=== PATIENT | male | born 1940 | race Caucasian/White ===

== ENCOUNTER 2020-10-04 17:55 | Outpatient (REF) | payer OTHER, SELFPAY ==
--- NOTE | 2020-10-04 10:15 | SKI_PTH ---
PATIENT: Fantasma Reid LOC: [facility] U#:[id number] AGE/SX: 80/M ROOM: RE10/04/[address]: Seth Cabral DO : 1940 BED: DIS: 10/04/2020 SPEC #: [id number] RECD: 10/04/20 18:06 STATUS: AGUEDA REQ #: [id number] USHA: 10/04/20 10:[address]: Seth Cabral DEPT: Surgical Specimen RECD BY: Jody Lockett ENTERED: 10/04/20 18:07 SP TYPE: ARMEN LARSON DR: Unknown,Unknown Tissues: 1 - SKIN BIOPSY(SHAVE/PUNCH) Procedures: SKIN LEVEL 4 Comments: [id number]
== END 2020-10-04 17:56 | disposition home or self-care (01) ==
LOC: LBN 17:55
PROVIDERS: Visit Provider Otolaryngology Otolaryngology/Facial Plastic Surgery
DX: C44.319 Basal cell carcinoma of skin of other parts of face (principal)
CPT/HCPCS: 88305

== ENCOUNTER 2022-07-07 02:42 | Outpatient (CLI) | payer OTHER, MEDICARE, SELFPAY ==
[2022-07-07 14:16] LABS: Abs Immature Grans 0.02 10^3/uL (0.0-0.06); Absolute Basophil Count 0.04 10^3/uL (0.0-0.2); Absolute Eosinophil Count 0.12 10^3/uL (0.0-0.7); Absolute Lymphocyte Count 1.81 10^3/uL (1.2-3.4); Absolute Monocyte Count 0.49 10^3/uL (0.1-0.8); Absolute Neutrophil Count 4.04 10^3/uL (1.2-6.7); Basophils % 0.6; Eosinophils % 1.8; HCT 40.9 % (40.0-50.0); HGB 13.2 g/dL (13.5-17.5); Immature Grans % 0.3; Lymphocytes % 27.8; MCH 29.6 pg (27.0-33.0); MCHC 32.3 % (32.0-36.0); MCV 92 fL (80-95); MPV 9.7 fL (8.0-11.0); Monocytes % 7.5; Platelet Count 162 10^3/uL (130-400); RBC 4.46 10^6/uL (4.36-5.78); RDW 12.6 % (11.8-14.1); RDW-SD 42.3 fL; WBC 6.52 10^3/uL (4.4-10.8)
[2022-07-07 14:31] LABS: ALT 38 U/L (16-63); AST 33 U/L (15-37); Albumin 3.5 g/dL (3.4-5.0); Alkaline Phosphatase 96 U/L (46-116); Anion Gap 10.3 mmol/L (3-11); BUN 20 mg/dL (7-18); Bilirubin, Total 0.4 mg/dL (0.2-1.0); CO2 27.7 mmol/L (21.0-32.0); CREATININE 1.6 mg/dL (0.70-1.30); Calcium 9.1 mg/dL (8.5-10.1); Chloride 104 mmol/L (98-107); Estimated GFR 42.49 (mL/min/1.73m2); Glucose 135 mg/dL (74-106); Potassium 3.7 mmol/L (3.5-5.1); Sodium 142 mmol/L (136-145); Total Protein 7.4 g/dL (6.4-8.2)
[2022-07-10 13:31] LABS: Chromogranin A 3368 ng/mL (<93)
== END 2022-07-07 02:43 | disposition home or self-care (01) ==
LOC: LBO 02:42
PROVIDERS: PCP Nurse Practitioner Family; Visit Provider Internal Medicine Hematology & Oncology
DX: C7A.098 Malignant carcinoid tumors of other sites (principal); Z85.46 Personal history of malignant neoplasm of prostate
CPT/HCPCS: 36415; 80053; 85025; 86316

== ENCOUNTER 2022-11-14 20:23 | Outpatient (REF) | payer OTHER, SELFPAY ==
[2022-11-14 20:57] LABS: Abs Immature Grans 0.01 10^3/uL (0.0-0.06); Absolute Basophil Count 0.03 10^3/uL (0.0-0.2); Absolute Lymphocyte Count 1.49 10^3/uL (1.2-3.4); Absolute Monocyte Count 0.51 10^3/uL (0.1-0.8); Absolute Neutrophil Count 4.32 10^3/uL (1.2-6.7); Basophils % 0.5; Eosinophils % 1.5; Immature Grans % 0.2; Lymphocytes % 23.1; MCHC 32.5 % (32.0-36.0); MCV 92 fL (80-95); MPV 10.6 fL (8.0-11.0); Monocytes % 7.9; Neutrophils % 66.8; Platelet Count 165 10^3/uL (130-400); RBC 4.34 10^6/uL (4.36-5.78); RDW-SD 43.7 fL; WBC 6.46 10^3/uL (4.4-10.8)
[2022-11-14 21:01] LABS: ESR 25 mm/hr (0-20)
[2022-11-14 21:35] LABS: C-Reactive Protein 1.29 mg/dL (0.0-0.3)
== END 2022-11-14 20:24 | disposition home or self-care (01) ==
LOC: LBN 20:23
PROVIDERS: PCP Nurse Practitioner Family; Visit Provider Nurse Practitioner Family
DX: M79.605 Pain in left leg (principal)
CPT/HCPCS: 85652; 85025; 86140

== ENCOUNTER 2022-11-15 12:30 | Outpatient (CLI) | payer OTHER, SELFPAY ==
--- NOTE | 2022-11-15 | DI.RAD_ITS ---
Exam(s) XR HIP LT COMPLETE AP PELVIS EXAM: XR HIP LT COMPLETE AP PELVIS CLINICAL HISTORY: LT LEG PAIN, M79.605. TECHNIQUE: 2D digital imaging was performed. COMPARISON: No exams were available for comparison FINDINGS: 3 views No evidence of pelvic nor hip fracture. To vertically orientated wire like densities are noted proje cting over both sides of the symphysis pubis. Possibly related to the prostate. There is mild narrowing of the bilateral hip joint spaces. No hip fractures. No pelvic fractures ev ident. SI joints unremarkable. No significant osseous lesions. IMPRESSION: No acute osseous findings in the pelvis and hips. DATA REPOSITORY: RADIATION DOSE DELIVERED:
--- NOTE | 2022-11-15 08:10 | DI.RAD_ITS ---
Exam(s) XR FEMUR LT EXAM: XR FEMUR LT CLINICAL HISTORY: LT LEG PAIN, M79.605. TECHNIQUE: 2D digital imaging was performed. COMPARISON: No exams were available for comparison FINDINGS: Two views: No evidence of left femur fracture. Bone density normal. No osseous lesions evident. Some degenera tive changes are noted in the knee. There is no obvious knee joint effusion. IMPRESSION: Unremarkable appearing left femur. DATA REPOSITORY: RADIATION DOSE DELIVERED:
== END 2022-11-15 12:50 ==
LOC: DI 12:32
PROVIDERS: PCP Nurse Practitioner Family; Visit Provider Nurse Practitioner Family
DX: M25.552 Pain in left hip (principal); M79.605 Pain in left leg
CPT/HCPCS: 73552; 73502